=== PATIENT | male | born 1995 | race Caucasian/White ===

== ENCOUNTER 2022-05-29 13:51 | Emergency (ER) | payer OTHER ==
[2022-05-29 13:56] VITALS: BP 118/64; PULSE 63; RESP 18; TEMP 98.4; BMI 25.0
[2022-05-29] MEDS ORDERED: KETOROLAC TROMETHAMINE 30 MG/1 ML VIAL IM ONE (14:32)
[2022-05-29] MEDS ORDERED: KETOROLAC TROMETHAMINE 30 MG/1 ML VIAL ONE (14:38)
== END 2022-05-29 15:18 | disposition home or self-care (01) ==
LOC: JERFT 13:51
PROC: 3E0233Z Introduction of Anti-inflammatory into Muscle, Percutaneous Approach (ICD-10-PCS; principal; 2022-05-29)
DX: K64.9 Unspecified hemorrhoids (principal)
CPT/HCPCS: 99284-25